=== PATIENT | male | born 1955 | race Caucasian/White ===

== ENCOUNTER 2018-03-04 10:55 | Emergency (ER) | payer BC ==
[2018-03-04 11:06] VITALS: BP 112/71
--- NOTE | 2018-03-04 11:25 | UC ---
Hand/Wrist HPI - HPI Summary HPI Summary: 62-year-old male comes to clinic today after falling down some steps and injuring his left wrist. Fall with an outstretched hand. Pain at the distal radius and there is swelling there also. Pain is worse with any kind of movement including movement of the fingers. Because of the pain he did have a near syncopal episode. Denies any other injuries denies any weakness numbness. No skin break. - History Of Current Complaint Chief Complaint: UCUpperExtremity Stated Complaint: L ARM INJURY Time Seen by Provider: 03/04/18 11:16 Pain Intensity: 4 - Allergies/Home Medications Allergies/Adverse Reactions: Allergies Allergy/AdvReac Type Severity Reaction Status Date / Time No Known Allergies Allergy Verified 03/04/18 11:06 PMH/Surg Hx/FS Hx/Imm Hx Previously Healthy: Yes - CHRONIC FATIGUE - Surgical History Surgical History: Yes Surgery Procedure, Year, and Place: hernia repair - Family History Known Family History: Positive: Non-Contributory - Social History Alcohol Use: None Substance Use Type: None Smoking Status (MU): Never Smoked Tobacco Review of Systems All Other Systems Reviewed And Are Negative: Yes Constitutional: Positive: Negative Skin: Positive: Negative Eyes: Positive: Negative ENT: Positive: Negative Respiratory: Positive: Negative Cardiovascular: Positive: Negative Gastrointestinal: Positive: Negative Motor: Positive: Negative Neurovascular: Positive: Negative Musculoskeletal: Positive: Other: - The left wrist is swollen at the distal radius and tender to palpation. No neurologic Deficit. Patient able to move his fingers. No sensation deficit. Capillary refill is normal. Patient's able to move his fingers but with pain is persistent from. Elbow has full range of motion shoulders full range of motion Neurological: Positive: Negative Psychological: Positive: Negative Is Patient Immunocompromised?: No Physical Exam Triage Information Reviewed: Yes Appearance: Well-Appearing, Well-Nourished, Pain Distress - MILD WITH MOVEMENT OF LEFT WRIST Vital Signs: Initial Vital Signs Temp 97.6 F 03/04/18 11:03 Pulse 83 03/04/18 11:03 Resp 16 03/04/18 11:03 BP 112/71 03/04/18 11:03 Pulse Ox 100 03/04/18 11:03 Neck exam: Normal Neck: Positive: Supple Respiratory: Positive: No respiratory distress Musculoskeletal: Positive: Other: - The left wrist is swollen at the distal radius and tender to palpation. No neurologic Deficit. Patient able to move his fingers. No sensation deficit. Capillary refill is normal. Patient's able to move his fingers but with pain is persistent from. Elbow has full range of motion shoulders full range of motion Neurological Exam: Normal Neurological: Positive: Alert, Muscle Tone Normal Psychological Exam: Normal Psychological: Positive: Normal Response To Family, Age Appropriate Behavior Skin Exam: Normal Hand/Wrist Course/Dx - Course Course Of Treatment: Order Information: WRIST LEFT 3+ VWS. Accession Number: [id number]. CPT: 39741. INDICATION: Left wrist injury. TECHNIQUE: 3 views of the left wrist were obtained. FINDINGS: There is diffuse soft tissue swelling. There is a transverse comminuted. impacted fracture of the distal radial metaphysis. A component of the fracture extends to. the distal articular margin. There is also a transverse slightly distracted fracture at. the base of the ulnar styloid process. IMPRESSION: 1. TRANSVERSE COMMINUTED IMPACTED INTRA-ARTICULAR FRACTURE OF THE DISTAL RADIUS. 2. SLIGHTLY DISPLACED FRACTURE OF THE ULNAR STYLOID PROCESS. . <Electronically signed by Vivek Martinez MD in [facility]> 03/04 1141. I discussed the x-ray report with the patient. In the clinic I placed a sugar tong splint with Ortho-Glass. Patient is neurovascularly intact after placement of the splint and also after nursing placed a sling. We were able to obtain an orthopedic follow-up today. - Differential Dx/Diagnosis Provider Diagnosis: Wrist fracture, left Discharge - Sign-Out/Discharge Documenting (check all that apply): Patient Departure All imaging exams completed and their final reports reviewed: Yes - Discharge Plan Condition: Stable Disposition: HOME Patient Education Materials: Wrist Fracture in Adults (ED) Referrals: Delfin Martinez MD [Primary Care Provider] - Dodie Cannon MD [Medical Doctor] - Additional Instructions: FOLLOW UP WITH ORTHOPEDICS, DR CANNON, TODAY AT 2PM. GET RECHECKED FOR ANY WORSENING OF YOUR CONDITION OR QUESTIONS OR CONCERNS. - Billing Disposition and Condition Condition: STABLE Disposition: Home
== END 2018-03-04 12:25 | disposition home or self-care (01) ==
LOC: UCEAST 10:55
DX: S52.592A Other fractures of lower end of left radius, initial encounter for closed fracture (principal); W10.9XXA Fall (on) (from) unspecified stairs and steps, initial encounter; Y92.9 Unspecified place or not applicable
CPT/HCPCS: 99212; G0463